=== PATIENT | male | born 1980 | race Caucasian/White ===

== ENCOUNTER → 2017-02-26 | Outpatient (CLI) | payer SELFPAY | LOC: COL.RAD 09:09 | DX: R19.09 Other intra-abdominal and pelvic swelling, mass and lump (principal) ==

== ENCOUNTER 2020-02-01 16:48 | Emergency (ER) | payer SELFPAY ==
[~2020-02-01] VITALS: Ht 180.3 cm; Wt 104.5 kg
[2020-02-01 16:52] VITALS: BP 161/106; TEMP 97.5
[2020-02-01] MEDS ORDERED: IBU800 M1 PO (17:11)
[2020-02-01] MEDS ORDERED: CRUTCHES MC (17:33)
[2020-02-01] MEDS ORDERED: ULTRAM 50MG TAB50 MG PO (17:33)
[2020-02-01 18:00] VITALS: PULSE 66
== END 2020-02-01 18:01 | disposition home or self-care (01) ==
LOC: COL.ER 16:48
DX: S83.011A Lateral subluxation of right patella, initial encounter (principal); Z88.1 Allergy status to other antibiotic agents; X58.XXXA Exposure to other specified factors, initial encounter

== ENCOUNTER → 2020-09-12 | Outpatient (CLI) | payer OTHER ==
[~2020-09-12] MED LIST: CRUTCHES MC; IBU800 M1 PO; ULTRAM 50MG TAB50 MG PO
== END ==
LOC: COL.RAD 09:54
DX: K40.90 Unilateral inguinal hernia, without obstruction or gangrene, not specified as recurrent (principal)